=== PATIENT | female | born 1960 | race Caucasian/White ===

== ENCOUNTER → 2017-04-03 | Day surgery (SDC) | payer BC ==
[~2017-04-03] VITALS: Ht 175.3 cm; Wt 90.7 kg
[~2017-04-03] MED LIST: FAMOTIDINE(*) 20MG/50ML PREMIX 50 ML IVPB ONE; GLUCAGON 1 MG KIT IV ONE; LISI20TA29 PO; NORMOSOL R SOLN(*) 1000 ML BAG 1,000 ML IV ONE; NS(*) 0.9% 100 ML ADDVANT BAG 100 ML ONE; PANT40TA65 PO; PIPERACILLIN/TAZO*3.375GM VIAL 3.375 GM ONE; PIPERACILLIN/TAZO*3.375GM VIAL 3.375 GM in NS(*) 0.9% 100 ML ADDVANT BAG 100 ML IVPB ONE
--- NOTE | 2017-04-03 06:20 | ER Report ---
History and Physical Time Seen By MD: 06:19 (AUGUSTIN SANTOYO MD) HPI/ROS CHIEF COMPLAINT: food stuck in esophagus HISTORY OF PRESENT ILLNESS: This is a 56 year old female. She has a piece of boneless ribs that she feels was stuck in her throat. She went to urgent care. They provided a GI cocktail and she felt like the food moved down a little. Able to drink small sips of fluid, but ends up spitting the fluid back up. Has been trying Pepsi. Food has been there for about 32 hours now. Pressure feeling mid esophagus. (AUGUSTIN SANTOYO MD) HPI/ROS Report was given to me at shift change per Dr. Santoyo, of a 56-year-old female with past medical history of hypertension on lisinopril 20 mg daily, anterior cervical fusion, appendectomy, x 1, T&A, who swallowed a piece of meat approximately 36 hours ago. She had gone to urgent care and received a GI cocktail without relief. She then came to the emergency department this morning from [place] and drove herself. Emergency department she received glucagon and is drinking Coke. I called Dr. Dumont, report given he has consented to proceed with an EGD. (HANNAH TURK MD) Allergies: Coded Allergies: No Known Drug Allergies (Unverified , 04/03/17) Home Meds Reported Medications Lisinopril (LISINOPRIL) 20 Mg Tablet, 20 MG PO QDAY, TAB 04/03/17 Reviewed Nurses Notes: Yes (AUGUSTIN SANTOYO MD) Constitutional Vital Sign - Last 24 Hours 04/03/17 04/03/17 04/03/17 04/03/17 06:10 06:19 06:34 06:39 Temp 98.2 Pulse 81 75 86 78 Resp 16 B/P (MAP) 135/98 Pulse Ox 95 95 98 96 O2 Delivery Room Air 04/03/17 04/03/17 06:54 07:09 Pulse 95 79 Pulse Ox 100 94 (HANNAH TURK MD) Physical Exam General Appearance: The patient is alert. Eyes: Pupils equal and round no injection. ENT: Normal oral mucosa. Moist mucous membranes. Normal posterior oropharynx. Neck: Neck is supple and non tender. Respiratory: Chest is non tender, lungs are clear to auscultation. Cardiac: regular rate and rhythm [ ] Gastrointestinal: Abdomen is soft and non tender, no masses, bowel sounds normal. DIFFERENTIAL DIAGNOSIS: After history and physical exam differential diagnosis was considered for likely food bolus in the esophagus. (DEEPAKAUGUSTIN ROBIN MD) Medical Decision Making Data Points Result Diagram: 04/03/17 0624 04/03/17 0624 Laboratory Hematology Test 04/03/17 06:24 Red Blood Count 4.55 M/uL (4.17-5.56) Mean Corpuscular Volume 103.2 fL (80.0-96.0) Mean Corpuscular Hemoglobin 36.0 pg (26.0-33.0) Mean Corpuscular Hemoglobin Concent 34.9 g/dL (32.0-36.0) Red Cell Distribution Width 13.3 % (11.5-14.5) Mean Platelet Volume 8.4 fL (7.2-11.1) Neutrophils (%) (Auto) 71.2 % (39.4-72.5) Lymphocytes (%) (Auto) 20.0 % (17.6-49.6) Monocytes (%) (Auto) 6.7 % (4.1-12.4) Eosinophils (%) (Auto) 1.0 % (0.4-6.7) Basophils (%) (Auto) 1.1 % (0.3-1.4) Nucleated RBC Relative Count (auto) 0.0 /100WBC Neutrophils # (Auto) 7.3 K/uL (2.0-7.4) Lymphocytes # (Auto) 2.1 K/uL (1.3-3.6) Monocytes # (Auto) 0.7 K/uL (0.3-1.0) Eosinophils # (Auto) 0.1 K/uL (0.0-0.5) Basophils # (Auto) 0.1 K/uL (0.0-0.1) Nucleated RBC Absolute Count (auto) 0.00 K/uL Peripheral Blood Smear No Y/N Sodium Level 140 mmol/L (137-145) Potassium Level 3.6 mmol/L (3.5-5.0) Chloride Level 100 mmol/L (98-107) Carbon Dioxide Level 30 mmol/L (22-31) Blood Urea Nitrogen 17 mg/dl (7-18) Creatinine 0.80 mg/dl (0.52-1.04) Glomerular Filtration Rate Calc > 60.0 Random Glucose 141 mg/dl (75-110) Calcium Level 9.8 mg/dl (8.4-10.2) Total Bilirubin 2.1 mg/dl (0.2-1.3) Aspartate Amino Transf (AST/SGOT) 61 U/L (0-35) Alanine Aminotransferase (ALT/SGPT) 62 U/L (0-56) Alkaline Phosphatase 70 U/L (0-126) Total Protein 8.1 gm/dl (6.3-8.2) Albumin 4.1 g/dl (3.5-5.0) Chemistry Test 04/03/17 06:24 White Blood Count 10.3 k/uL (4.5-11.0) Red Blood Count 4.55 M/uL (4.17-5.56) Hemoglobin 16.4 g/dL (12.0-16.0) Hematocrit 46.9 % (34.0-47.0) Mean Corpuscular Volume 103.2 fL (80.0-96.0) Mean Corpuscular Hemoglobin 36.0 pg (26.0-33.0) Mean Corpuscular Hemoglobin Concent 34.9 g/dL (32.0-36.0) Red Cell Distribution Width 13.3 % (11.5-14.5) Platelet Count 252 K/uL (150-450) Mean Platelet Volume 8.4 fL (7.2-11.1) Neutrophils (%) (Auto) 71.2 % (39.4-72.5) Lymphocytes (%) (Auto) 20.0 % (17.6-49.6) Monocytes (%) (Auto) 6.7 % (4.1-12.4) Eosinophils (%) (Auto) 1.0 % (0.4-6.7) Basophils (%) (Auto) 1.1 % (0.3-1.4) Nucleated RBC Relative Count (auto) 0.0 /100WBC Neutrophils # (Auto) 7.3 K/uL (2.0-7.4) Lymphocytes # (Auto) 2.1 K/uL (1.3-3.6) Monocytes # (Auto) 0.7 K/uL (0.3-1.0) Eosinophils # (Auto) 0.1 K/uL (0.0-0.5) Basophils # (Auto) 0.1 K/uL (0.0-0.1) Nucleated RBC Absolute Count (auto) 0.00 K/uL Peripheral Blood Smear No Y/N Glomerular Filtration Rate Calc > 60.0 Calcium Level 9.8 mg/dl (8.4-10.2) Total Bilirubin 2.1 mg/dl (0.2-1.3) Aspartate Amino Transf (AST/SGOT) 61 U/L (0-35) Alanine Aminotransferase (ALT/SGPT) 62 U/L (0-56) Alkaline Phosphatase 70 U/L (0-126) Total Protein 8.1 gm/dl (6.3-8.2) Albumin 4.1 g/dl (3.5-5.0) (HANNAH TURK MD) EKG/Imaging EKG Interpretation Normal sinus rhythm, ventricular rate 70 bpm, MI interval 160 ms, QRS duration 82 ms, QT 390 ms, QTC 444 ms. (HANNAH TURK MD) ED Course/Re-evaluation Clinical Indication for ER IV: IV Access ([facility] ED Course 0710: I called Dr. Last, surgeon. Given 56-year-old female has a piece of meat stuck in her esophagus for approximately 36 hours. She drove here from [place] this morning. She had gone to urgent care and they gave her a GI cocktail with no relief. This morning she came to the emergency department and received glucagon and was drinking Coke. After 35-40 minutes there is still no relief. Dr. Last then told me she does not do EGD's. 0815: Dr. Dumont is here and will take patient to the OR for EGD. ECG, chest x-ray, labs within normal limits except for slightly elevated ALT and AST.. Re-evaluation Medical decision making includes but not excluded to largest foreign body, esophageal stricture, esophageal tumor. Decision to Disposition Date: Apr 03, 2017 Decision to Disposition Time: 08:21 (HANNAH TURK MD) Depart Departure Latest Vital Signs Vital Signs Date Time Temp Pulse Resp B/P (MAP) Pulse Ox O2 Delivery O2 Flow Rate FiO2 04/03/17 07:09 79 94 04/03/17 06:10 98.2 16 135/98 Room Air (HANNAH TURK MD) Impression: Primary Impression: Foreign body in esophagus Condition: Condition Unchanged Disposition: ADMIT FROM ER TO OR Problem Qualifiers Primary Impression: Foreign body in esophagus Encounter type: initial encounter Qualified Codes: T18.108A - Unspecified foreign body in esophagus causing other injury, initial encounter AUGUSTIN SANTOYO MD Apr 03, 2017 06:20 HANNAH TURK MD Apr 03, 2017 07:28
[2017-04-03 07:57] LABS: PLATELET COUNT, AUTOMATED 252 K/uL (150-450)
--- NOTE | 2017-04-03 08:02 | EKG ---
FACILITY: [facility] - [place] PATIENT NAME: SANGEETHA CAGE : [id number] MR: [id number] V: [id number] EXAM DATE: ORDERING PHYSICIAN: HANNAH TURK TECHNOLOGIST: Andrez Welsh Reason : Blood Pressure : / mmHG Vent. Rate : 078 BPM Atrial Rate : 078 BPM P-R Int : 160 ms QRS Dur : 082 ms QT Int : 390 ms P-R-T Axes : 025 009 043 degrees QTc Int : 444 ms Sinus rhythm Borderline left axis Artifact in lead V1 No previous ECGs available Confirmed by PETRA MONTESINOS ([id number]) on 04/04/2017 5:52:13 AM Referred By: Confirmed By:PETRA MONTESINOS
--- NOTE | 2017-04-03 08:21 | RADIOLOGY IMAGING REPORT ---
FACILITY: [facility] - [place] PATIENT NAME: Teresa Diego : 1960 MR: [id number] V: [id number] EXAM DATE: ORDERING PHYSICIAN: HANNAH TURK TECHNOLOGIST: Location: [facility] - [place] Patient: Teresa Diego : 1960 Visit/Account:[id number] Date of Sevice: 04/03/2017 CHEST SINGLE AP AP at 0747 hours COMPARISON: None. HISTORY: foreign body obstruction , meets stuck in the throat FINDINGS: CARDIAC/VASC: No cardiac silhouette abnormality or cardiomegaly. Unremarkable pulmonary vasculatu re. MEDIASTINUM: No visible mass or adenopathy. LUNGS/PLEURA: No pneumothorax. No significant pulmonary parenchymal abnormalities. No costophrenic angle blunting to suggest a large effusion. No localized air-trapping to suggest an endobronchial for eign body in the chest. BONES: No fracture or visible bony lesion. Including the imaged cervical spine fusion plate. OTHER:Negative. IMPRESSION: No acute cardiopulmonary process. There is no localized air-trapping or volume loss to suggest a an e ndobronchial foreign body in the chest. Report Dictated By: Quentin Newman at 04/03/2017 8:16 AM Report E-Signed By: Quentin Newman at 04/03/2017 8:16 AM WSN:[id number]
--- NOTE | 2017-04-03 08:40 | Gen Surgery History & Physical ---
History of Present Illness Chief Complaint Food impacted in esophagus History of Present Illness 56-year-old female presents 36 hours and to having a food bolus impacted in her esophagus. She reports the night before last she was eating ribs and she hadn't eaten all day and so she was particularly famished and so was probably eating faster than she usually does and shortly after this meal began experiencing like food was stuck in her esophagus and she could not eat or drink. She went to the urgent care who tried multiple measures including glucagon and a GI cocktail and apparently none of this has helped improve her symptoms. She has noted having occasional dysphagia for years since her anterior cervical fusion and she attributes this to the intubation for general anesthesia during that surgery. The dysphagia is not constant and it does not occur all the time. It seems to occur mainly with meat but she noticed the other day it occurred when she a hot dog antibiotic and that was particularly unusual. She denies any regular heartburn symptoms or water brash or acid taste in her throat. She denies waking up in the middle of the night coughing. She is never had an upper GI endoscopy although she had a colonoscopy a year and a half ago which according her was normal. She has no unintentional weight loss. She normally eats without problems. She is not on any acid reducing or stomach related medications. History Problems: (1) Hypertension Status: Chronic Home Meds Reported Medications Lisinopril (LISINOPRIL) 20 Mg Tablet, 20 MG PO QDAY, TAB 04/03/17 Allergies: Coded Allergies: No Known Drug Allergies (Unverified , 04/03/17) Review of Systems All Systems Reviewed/Normal: Yes, Except as Noted Cardiovascular: Chest Pain (related to the food bolus in her esophagus) Gastrointestinal: Dysphagia Exam General Appearance: Alert, Awake, No Acute Distress, Afebrile Neuro: No Gross deficits Eyes: PERRLA Cardiovascular: Regular Rate and Rhythm Respiratory: No Respiratory Distress GI: Abd Soft and Non-Tender Extremities: Warm, Perfused Medical Decision Making Data Points Result Diagram: 04/03/1762304/03/17623 Assessment and Plan Problems: (1) Foreign body in esophagus Status: Acute Assessment & Plan: 04/03/17: We'll bring to the operating room for urgent upper GI endoscopy with assessment of her esophagus and if present removal of the foreign body. If the meat bolus has been impacted for more than 36 hours as she suggests then this increases the trauma to her esophagus including worsening edema which can make removing the foreign body even more difficult since the swelling can narrow the esophagus even further. This can even increase the risk of perforating her esophagus while trying to remove the meat bolus. I have explained the procedure to her in great detail as well as the alternatives and the risks including esophageal perforation or inability to remove the foreign body without a more invasive procedure and she seems to understand this discussion and her questions been answered. She would like to proceed with EGD and assessment of her esophagus with foreign body removal at present. Will likely place her on PPI therapy after this procedure is done and I made her aware of this before we go back. Condition Stable Time Spent: < 30 min Venous Thromboembolism VTE Risk Physician Assess for VTE Risk: Yes Patient's VTE Risk: Low VTE Diagnostic Test 2 Days Prior to Admit: No Antithrombotics Is Pt On Any Antithrombotics?: No Problem Qualifiers (1) Foreign body in esophagus: Encounter type: initial encounter Qualified Codes: T18.108A - Unspecified foreign body in esophagus causing other injury, initial encounter COCO HUFF MD Apr 03, 2017 08:40
--- NOTE | 2017-04-03 09:30 | Short(Outpt) Discharge Summary ---
Discharge Summary Reason for Hosp/Final Diag: (1) Foreign body in esophagus Status: Acute Hospital Course & Plan: 04/03/17: We'll bring to the operating room for urgent upper GI endoscopy with assessment of her esophagus and if present removal of the foreign body. If the meat bolus has been impacted for more than 36 hours as she suggests then this increases the trauma to her esophagus including worsening edema which can make removing the foreign body even more difficult since the swelling can narrow the esophagus even further. This can even increase the risk of perforating her esophagus while trying to remove the meat bolus. I have explained the procedure to her in great detail as well as the alternatives and the risks including esophageal perforation or inability to remove the foreign body without a more invasive procedure and she seems to understand this discussion and her questions been answered. She would like to proceed with EGD and assessment of her esophagus with foreign body removal at present. Will likely place her on PPI therapy after this procedure is done and I made her aware of this before we go back. 04/03/17: EGD with biopsies and foreign body removal completed without problems. Will d/c to home on soft diet and PPI rx and will repeat EGD in 6 weeks. Departure Discharge to: Home, Self Care Discharge Instructions Home Meds Active Scripts Pantoprazole Sodium (PANTOPRAZOLE SODIUM) 40 Mg Tablet.dr, 1 TAB PO BIDAC, #60 TAB 6 Refills Prov:COCO HUFF MD 04/03/17 Reported Medications Lisinopril (LISINOPRIL) 20 Mg Tablet, 20 MG PO QDAY, TAB 04/03/17 Follow up Referrals: General Surgery - 04/20/17 @ Surgery, General with Coco Huff Md You have a follow up appointment scheduled with Dr. Huff on 04/20/17, at 3: 00pm. Activity: As Tolerated Special Instructions: Eat only soft foods for 2 days (mashed potatoes, pudding, yogurt, soup, etc, NO CHUNKS; stay away from bread, meat, and chunks of vegetables). I am prescribing a medication called pantoprazole (Protonix) which decreases the amount of acid your stomach makes. Take this medication twice every day. Take it FIRST THING every morning when you get out of bed and don't eat anything for 1/2 hour after taking it. In the evenings, don't eat for 2 hours before taking the medication and wait 1/2 hour after taking it before eating. Problem Qualifiers (1) Foreign body in esophagus: Encounter type: initial encounter Qualified Codes: T18.108A - Unspecified foreign body in esophagus causing other injury, initial encounter COCO HUFF MD Apr 03, 2017 09:30
[2017-04-03 09:45] VITALS: BP 109/68
[2017-04-03 10:00] VITALS: BP 120/84
[2017-04-03 10:02] VITALS: BP 109/78
== END ==
LOC: ER 06:57 → OR 07:48
PROVIDERS: ATTEND Surgery
DX: T18.128A Food in esophagus causing other injury, initial encounter (principal); K21.0 Gastro-esophageal reflux disease with esophagitis
CPT/HCPCS: 43239; 43247; 71045; 85025; 93005; 99285; J1610; J3490; 82040; 82247; 82310; 82374; 82435; 82565; 82947; 84075; 84132; 84155; 84295; 84450; 84460; 84520; 88305; 88313

== ENCOUNTER → 2017-05-02 | Outpatient (CLI) | payer BC ==
[~2017-05-02] MED LIST changes: +BARIUM SULFATE 176 GM BTL PO ONE; +BARIUM SULFATE 340 GM POWD ONE; -FAMOTIDINE(*) 20MG/50ML PREMIX 50 ML IVPB ONE; -GLUCAGON 1 MG KIT IV ONE; -NORMOSOL R SOLN(*) 1000 ML BAG 1,000 ML IV ONE; -NS(*) 0.9% 100 ML ADDVANT BAG 100 ML ONE; -PIPERACILLIN/TAZO*3.375GM VIAL 3.375 GM ONE; -PIPERACILLIN/TAZO*3.375GM VIAL 3.375 GM in NS(*) 0.9% 100 ML ADDVANT BAG 100 ML IVPB ONE
--- NOTE | 2017-05-04 08:27 | RADIOLOGY IMAGING REPORT ---
FACILITY: [facility] - [place] PATIENT NAME: Teresa Diego : 1960 MR: [id number] V: [id number] EXAM DATE: ORDERING PHYSICIAN: COCO HUFF TECHNOLOGIST: Location: [facility] Patient: Teresa Diego : 1960 Visit/Account:[id number] Date of Sevice: 05/02/2017 Exam type: ESOPHAGRAM History: See dx Comparison: Esophageal dysphasia. Findings: Double contrast esophagram was performed with thick and thin barium. There is a prominent impression on the posterior wall of the upper cervical esophagus by the cricopharyngeus muscle. There was mild spasm seen in the midesophagus. On several images, there is suggestion of a mucosal irregularity an d possibly a mucosal lesion along the anterior aspect of the mid esophagus this best seen on series 7 and series 9. A moderate amount of gastric esophageal reflux was observed... The fluoroscopy dose area product was 410.64 micro-Higuera per meter squared IMPRESSION: 1. Moderate amount of gastroesophageal reflux. There is mild spasm in the midesophagus. On several images are suggestion of a mucosal irregularity and possibly a mucosal lesion along the anterior aspect of the mid esophagus. Endoscopy is recommend ed for further evaluation There is a prominent impression on the posterior wall the upper cervical esophagus by the cricopharyn geus muscle Report Dictated By: Albina Nava MD at 05/02/2017 5:28 PM Report E-Signed By: Albina Nava MD at 05/04/2017 8:23 AM WSN:[email or web address]
== END ==
LOC: RAD 01:26
PROVIDERS: ATTEND Surgery
DX: K21.9 Gastro-esophageal reflux disease without esophagitis (principal); K22.4 Dyskinesia of esophagus
CPT/HCPCS: 74220

== ENCOUNTER 2017-06-08 00:14 | Day surgery (SDC) | payer BC ==
[~2017-06-08] VITALS: Ht 175.3 cm; Wt 104.8 kg
[~2017-06-08 00:14] MED LIST changes: -BARIUM SULFATE 176 GM BTL PO ONE; -BARIUM SULFATE 340 GM POWD ONE; +LIDOCAINE/SOD BICARB 8.4% SYR ID ONE; +MIDAZOLAM 2 MG/2 ML VIAL IVP PRN; +NORMOSOL R SOLN(*) 1000 ML BAG 1,000 ML IV PRN
[2017-06-08] MEDS ORDERED: PROPOFOL EMUL(*) 10MG/ML 20 ML 20 ML ONE (07:04)
[2017-06-08 08:06] VITALS: BP 127/86
[2017-06-08] MEDS ORDERED: LIDOCAINE/SOD BICARB 8.4% SYR ID ONE (08:45)
[2017-06-08] MEDS ORDERED: NORMOSOL R SOLN(*) 1000 ML BAG 1,000 ML IV PRN (08:45)
[2017-06-08 10:17] VITALS: BP 87/50
--- NOTE | 2017-06-08 10:27 | Short(Outpt) Discharge Summary ---
Discharge Summary Reason for Hosp/Final Diag: (1) Dysphagia Status: Chronic Hospital Course & Plan: EGD with dilation completed without problems. (2) Foreign body in esophagus Status: Resolved Departure Discharge to: Home, Self Care Discharge Instructions Home Meds Active Scripts Pantoprazole Sodium (PANTOPRAZOLE SODIUM) 40 Mg Tablet.dr, 1 TAB PO BIDAC, #60 TAB 6 Refills Prov:COCO HUFF MD 04/03/17 Reported Medications Lisinopril (LISINOPRIL) 20 Mg Tablet, 20 MG PO QDAY, TAB 04/03/17 Follow up Referrals: General Surgery - 06/24/17 @ Surgery, General with Coco Huff Md You have a follow up appointment scheduled with Dr. Huff on 06/24/17, at 11:30am. Diet: Regular Activity: As Tolerated Problem Qualifiers (1) Dysphagia: Dysphagia type: esophageal phase Qualified Codes: R13.10 - Dysphagia, unspecified (2) Foreign body in esophagus: Encounter type: subsequent encounter Qualified Codes: T18.108D - Unspecified foreign body in esophagus causing other injury, subsequent encounter COCO HUFF MD Jun 08, 2017 10:27
[2017-06-08 10:30] VITALS: BP 107/77
[2017-06-08 10:45] VITALS: BP 132/84
[2017-06-08 10:47] VITALS: BP 124/88
== END 2017-06-08 10:55 | disposition home or self-care (01) ==
LOC: OR 00:14
PROVIDERS: ATTEND Surgery
DX: K44.9 Diaphragmatic hernia without obstruction or gangrene (principal)
CPT/HCPCS: 43248; J2704; C1726

== ENCOUNTER 2018-08-27 18:30 | Emergency (ER) | payer BC ==
[~2018-08-27 18:30] MED LIST changes: -LIDOCAINE/SOD BICARB 8.4% SYR ID ONE; -MIDAZOLAM 2 MG/2 ML VIAL IVP PRN; -NORMOSOL R SOLN(*) 1000 ML BAG 1,000 ML IV PRN
--- NOTE | 2018-08-27 18:49 | ER Report ---
History and Physical Time Seen By MD: 18:46 (LATONYA THEODORE DO) Hx. of Stated Complaint: Leg laceration (TAMIKO OSWALD) HPI/ROS CHIEF COMPLAINT: Fall, right lower leg laceration HISTORY OF PRESENT ILLNESS: 58-year-old female presents ambulatory to the ER with a large flap-shaped the laceration of the lateral aspect of her right jean. It occurred just prior to arrival. She has a scratch at the posterior aspect of her leg. She shows good range of motion both her knee and her ankle. Her last tetanus shot was one month ago. Patient notes 04/06 pain. (LATONYA THEODORE DO) Allergies: Coded Allergies: latex (Verified Allergy, Unknown, 04/20/17) Home Meds Reported Medications Lisinopril (LISINOPRIL) 20 Mg Tablet, 20 MG PO QDAY, TAB 04/03/17 Discontinued Scripts Pantoprazole Sodium (PANTOPRAZOLE SODIUM) 40 Mg Tablet.dr, 1 TAB PO QDAY, #60 TAB 6 Refills Prov:COCO HUFF MD 07/11/17 Reviewed Nurses Notes: Yes Old Medical Records Reviewed: Yes (LATONYA THEODORE DO) Hx Smoking: No Smoking Status: Never Smoker Hx Substance Use Disorder: No Hx Alcohol Use: No (LATONYA THEODORE DO) Constitutional Vital Sign - Last 24 Hours 08/27/18 08/27/18 08/27/18 08/27/18 18:45 18:46 19:00 19:30 Temp 97.7 Pulse 88 70 Resp 16 B/P (MAP) 131/78 131/78 (95) 115/87 (96) 112/69 (83) Pulse Ox 90 90 92 O2 Delivery Room Air 08/27/18 20:00 Pulse 73 B/P (MAP) 123/84 (97) Pulse Ox 90 (TAMIKO OSWALD) Physical Exam General appearance: Alert no distress. Respiratory: Chest is non tender, lungs are clear to auscultation. Cardiac: Regular rate and rhythm Extremities: Examination of the right lower extremity reveals a neurovascularly intact foot. Unremarkable. Ankle and knee. On visualization of the lateral aspect of the right lower leg. There is a V-shaped laceration approximately 4 cm long. Stands deep into the subcutaneous tissue. There is no tendons or muscle fashion noted in there. Distal neurovascular functions intact. DIFFERENTIAL DIAGNOSIS: After history and physical exam differential diagnosis was considered for leg laceration, leg foreign body, tendon injury, muscle injury. (LATONYA THEODORE DO) Medical Decision Making ED Course/Re-evaluation ED Course Patient was admitted to an examination room. H&P was done. The differential diagnosis was considered. Patient with a right lower leg laceration. Repair was by nurse practitioner student. See note below. Wound care was discussed, suture removal be in 12 days. I examined the wound. After this repair was performed. It appeared adequate. Decision to Disposition Date: Aug 27, 2018 Decision to Disposition Time: 20:43 (LATONYA THEODORE DO) ED Course Procedure: Laceration repair. Verbal consent was obtained from the patient. The 7.5cm in total leg laceration on the left leg was anesthetized in the usual fashion. The wound was scrubbed, draped and explored to its base with a gloved finger. There were no deep structures involved. No tendon injury was identified. The wound was repaired with 5-0 proline and 4-0 proline. The wound repair was simple. The procedure was performed by Lynette Meyer, [employer] student. (TAMIKO OSWALD) Depart Departure Latest Vital Signs Vital Signs Date Time Temp Pulse Resp B/P (MAP) Pulse Ox O2 Delivery O2 Flow Rate FiO2 08/27/18 20:00 73 123/84 (97) 90 08/27/18 18:45 97.7 16 Room Air (TAMIKO OSWALD) Impression: Primary Impression: Laceration of right lower leg Condition: Improved Disposition: HOME OR SELF-CARE Referrals: VLAD PELLETIER DO (PCP) Patient Instructions: Laceration (ED) Additional Instructions: Perform daily wound care. Watch for signs of infection Have stitches removed in 12 days. Problem Qualifiers Primary Impression: Laceration of right lower leg Encounter type: initial encounter Qualified Codes: S81.811A - Laceration without foreign body, right lower leg, initial encounter LATONYA THEODORE DO Aug 27, 2018 18:49 TAMIKO OSWALD Aug 28, 2018 18:52
[2018-08-27] MEDS ORDERED: ACETAMINOPHEN 325 MG TAB PO ONE (19:40)
[2018-08-27 20:00] VITALS: BP 123/84
== END 2018-08-27 21:01 | disposition home or self-care (01) ==
LOC: ER 18:48
DX: S81.811A Laceration without foreign body, right lower leg, initial encounter (principal); W19.XXXA Unspecified fall, initial encounter; I10 Essential (primary) hypertension; K21.9 Gastro-esophageal reflux disease without esophagitis; Z98.1 Arthrodesis status; Z79.899 Other long term (current) drug therapy
CPT/HCPCS: 99283